=== PATIENT | male | born 1965 | race Caucasian/White ===

== ENCOUNTER → 2016-10-30 | Outpatient (CLI) | payer BC ==
[~2016-10-30] MED LIST: AMITRYPTYLINE PO; ASPIRIN EC81 M1 PO; FLAGYL250 M1 PO; L-LYSINE1000 M1 PO; LISINOPRIL-HCTZ1 T14 PO; LISINOPRIL20 MG PO; METOCLOPRAMIDE H5 MG PO; METRONIDAZOLE PO; MOBIC PO; MULTI VITAMIN1 EACH; NEURONTIN300 MG; OMEGA 3 1,0001 EACH; PERCOCET PO; POTASSIUM GLUC500 MG; PRILOSEC PO; PROTONIX PO; REGLAN10 MG PO; TENORETIC PO; TRILIPIX135 MG PO; VIBRAMYCIN100 M1 PO; ZESTORETIC 20/11 TAB; ZESTORETIC 20/11 TAB PO
--- NOTE | ~2016-10-30 | XA51 ---
[facility] A Service of [facility] / [facility] RADIOLOGY TEXT RESULTS PATIENT: ARACELIS MCCLAIN LOCATION: [facility] : 69 UNIT #: [id number] AGE: [address]: Davian Parra MD SEX: M ORDER DR: [id number] [facility]. [place], [place] [address] [id number] O MR#: [id number] Acc #: [id number] NAME: ARACELIS MCCLAIN : 1965 SEX: M STUDY DATE/TIME: 10/30/2016 8:50 UNIT: [facility] ROOM: STUDY DESCRIPTION: XA BX Bone Marrow Attending Physician: Davian Parra M.D. Ordering Physician: Davian Parra M.D. Primary Care Physician: Medhat Pena M.D. MEDICAL IMAGING REPORT This report is preliminary unless electronic signature is present PROCEDURE Fluoroscopically guided bone marrow biopsy INDICATIONS Thrombocytopenia. The fluoro time is 0.8 minutes. 1 fluoroscopic image was taken. 5 mg of IV Versed and 250 mcg of IV fentanyl were administered. Conscious sedation time of 30 minutes was monitored by appropriately credentialed radiology nursing staff. The risks, benefits and alternatives of the procedure were discussed with the patient and informed consent was obtained. In the procedure room, a timeout was performed confirming correct patient and procedure. All elements of maximum sterile-barrier technique utilized according to guidelines appropriate for the procedure. TECHNIQUE/FINDINGS Skin overlying the posterior right iliac crest was prepped and draped in the usual sterile fashion and 1% lidocaine was utilized to anesthetize the skin and underlying subcutaneous tissues. Next, under fluoroscopic guidance, an 11-gauge OnControl needle was advanced into the marrow space and a bone marrow aspirate followed by core biopsy was obtained. Needle was removed and a sterile dressing was applied. No immediate complications. IMPRESSION Technically successful fluoroscopically guided bone marrow biopsy and aspiration. Dictated by... Andres White M.D. [facility] A Service [facility] RADIOLOGY TEXT RESULTS PATIENT: ARACELIS MCCLAIN LOCATION: [facility] : 69 UNIT #: [id number] AGE: [address]: Davian Parra MD SEX: M ORDER DR: THIS IS AN ELECTRONICALLY VERIFIED REPORT Andres White M.D. at 10/31/2016 7:45 AM RACHEL/delonte TD: 10/30/2016 22:03 JOB #: [id number] MEDICAL IMAGING REPORT Page 1 of 1 COPY
[2016-10-30 07:29] LABS: HEMATOCRIT 43.8 % (38.0-50.0); HEMOGLOBIN 14.8 gm/dL (13.0-16.0); MEAN CELL VOLUME 97.9 FL (83-96); MEAN CORPUSCULAR HGB CONC 33.8 g/dL (30-36); RED BLOOD COUNT 4.47 X10e (3.90-5.60); RED CELL DISTRIBUTION WIDTH 12.9 % (11.0-15.5); WHITE BLOOD COUNT 6.7 X10e3 (4.0-10.5)
[2016-10-30 07:39] LABS: INR 1.2; PARTIAL THROMBOPLASTIN TIME 23.1 SECONDS (23.5-31.3); PROTHROMBIN TIME (PATIENT) 12.4 SECONDS (9.6-11.5)
== END | disposition home or self-care (01) ==
LOC: CIVR 06:50
PROVIDERS: Internal Medicine Hematology
PROC: 07DR3ZX Extraction of Iliac Bone Marrow, Percutaneous Approach, Diagnostic (ICD-10-PCS; principal; 2016-10-30)
PROC: 079T3ZX Drainage of Bone Marrow, Percutaneous Approach, Diagnostic (ICD-10-PCS; 2016-10-30)
DX: D69.6 Thrombocytopenia, unspecified (principal); M54.5 Low back pain; R19.4 Change in bowel habit; K62.5 Hemorrhage of anus and rectum; Z79.899 Other long term (current) drug therapy; Z88.5 Allergy status to narcotic agent
CPT/HCPCS: 38221; G0364; 36415; 77002; 85027; 85610; 85730; 88305; 88311; 99144; 99152; 99153; J2250; J3010